=== PATIENT | male | born 1990 | race Caucasian/White ===

== ENCOUNTER 2018-11-09 11:32 | Inpatient (IN) | payer OTHER ==
[~2018-11-09] VITALS: Ht 180.3 cm; Wt 100.7 kg
--- NOTE | 2018-11-09 12:00 | NUR ---
C/O ARLETTE THIGH PAIN FROM WORKING OUT PER PT, AA/OX4, BREATHING EVEN AND UNLABORED, NO SOB NOTED. PLACED ON THE MONITOR, CHANGED INTO GOWN. KEPT COMFORTABLE.
[2018-11-09] MEDS ORDERED: IBUPROFEN 600 MG TABLET PO ONE ×2 (12:40→13:00)
[2018-11-09] MEDS ORDERED: ACETAMINOPHEN ES 500 MG TABLET ONE (12:40)
[2018-11-09 12:50] LABS: CREATININE 1.1 mg/dL (0.6-1.3); POTASSIUM 3.9 mmol/L (3.5-5.1)
[2018-11-09] MEDS ORDERED: ACETAMINOPHEN ES 500 MG TABLET PO ONE (13:00)
--- NOTE | 2018-11-09 13:30 | NUR ---
PATIENT ABLE TO TOLERATE ORAL FLUIDS. ABLE TO AMBULATE AND USE THE RESTROOM INDEPENDENTLY.
[2018-11-09] MEDS ORDERED: MORPHINE SULFATE INJ 2 MG/ML DISP.SYRIN ONE (13:56)
[2018-11-09] MEDS ORDERED: ONDANSETRON HCL/PF 4 MG/2 ML VIAL ONE (13:56)
[2018-11-09] MEDS ORDERED: MORPHINE SULFATE INJ 4 MG/ML DISP.SYRIN ONE (13:56)
[2018-11-09] MEDS ORDERED: IV NS 0.9% 1,000 ML BAG IV ONE (14:00)
[2018-11-09] MEDS ORDERED: MORPHINE SULFATE INJ 2 MG/ML DISP.SYRIN IV ONE (14:00)
[2018-11-09] MEDS ORDERED: ONDANSETRON HCL/PF 4 MG/2 ML VIAL IVP ONE (14:00)
[2018-11-09 14:11] LABS: BASOPHILS % (AUTO) 0.3 % (0.0-2.0); EOSINOPHILS % (AUTO) 0.4 % (0.0-6.0); HEMATOCRIT 46 % (39-51); HEMOGLOBIN 15.8 g/dL (13.5-17.5); LYMPHOCYTES # (AUTO) 1.5 /CMM (0.8-4.8); LYMPHOCYTES % (AUTO) 15.1 % (20.0-44.0); MEAN CORPUSCULAR HGB CONC 35 g/dl (31.0-36.0); MEAN CORPUSCULAR VOLUME 88 fL (80-96); MONOCYTES # (AUTO) 0.6 /CMM (0.1-1.30); MONOCYTES % (AUTO) 5.9 % (2.0-12.0); NEUTROPHILS # (AUTO) 7.9 /CMM (1.8-8.9); NEUTROPHILS % (AUTO) 78.3 % (43.0-81.0); PLATELET COUNT (AUTO) 245 /CMM (150-450); RED BLOOD CELL COUNT(AUTO) 5.21 MIL/uL (4.5-6.0)
[2018-11-09 14:26] LABS: ALBUMIN 4.3 g/dL (3.4-5.0); BILIRUBIN,DIRECT 0.2 mg/dL (0.0-0.2); TOTAL PROTEIN, SERUM 7.2 g/dL (6.4-8.2)
--- NOTE | 2018-11-09 14:30 | NUR ---
[facility]ED [facility]. [facility] FACULTY ASSISTANT WAS PAGED
[2018-11-09 14:41] LABS: BILIRUBIN,TOTAL 0.7 mg/dL (0.2-1.0)
--- NOTE | 2018-11-09 14:51 | NUR ---
CALLED [facility] FOR MS BED
--- NOTE | 2018-11-09 15:38 | NUR ---
REPORT GIVEN TO ANAID ELDRIDGE.
[2018-11-09 15:49] LABS: MAGNESIUM 2.1 mg/dL (1.8-2.4); PHOSPHORUS 3.7 mg/dL (2.5-4.9)
--- NOTE | 2018-11-09 15:59 | NUR ---
PATIENT TRANSFERRED TO ROOM 321 VIA WHEELCHAIR, IN STABLE CONDITION. NO DISTRESS NOTED.
[2018-11-09 16:00] VITALS: BP 139/84
[2018-11-09] MEDS ORDERED: Z GUARD REMEDY 2 OZ OINT TP PRN (16:00)
[2018-11-09] MEDS ORDERED: MAGNESIUM HYDROXIDE 30 ML UDC PO PRN (16:00)
[2018-11-09] MEDS ORDERED: IV NS 0.9% 1,000 ML IV PRN ×2 (16:00)
[2018-11-09] MEDS ORDERED: MAG HYDROX/AL HYDROX/SIMETH 30 ML UDC PO PRN (16:00)
[2018-11-09] MEDS ORDERED: ONDANSETRON HCL/PF 4 MG/2 ML VIAL IVP PRN (16:00)
--- NOTE | 2018-11-09 16:00 | NUR ---
RN MS NOTES Patient received on room air, no sob noted, patient able to be transferred on his own bed without any setbacks. bolus IV of NS started as ordered. bed at the lowest setting, call light within reach, side rails up x2.
--- NOTE | 2018-11-09 17:40 | NUR ---
RN MS NOTES Patient's BLE pulse was check with the doppler. Strong bounding pulses heard bilaterally.
--- NOTE | 2018-11-09 18:23 | NUR ---
RN MS CLOSING NOTES Patient remains on room air, no sob noted, patient denies pain at this time. Patient stated that only a little bit of discomfort on his legs are felt. Patient remains a/o x4, NPO at this time. Doppler done for BLE neurologic and BLE pulses, pulses present and strong. IV bolus still infusing at this time on his second bag. Patient's bed at the lowest setting, call light within reach, side rails up x2. Will give report to NOC RN for KAIN bedside.
--- NOTE | 2018-11-09 19:05 | NUR ---
MS RN NOTE RECEIVED PT IN STABLE CONDITION A/O X4, CURRENTLY IN BED WATCHING TV WITH GUEST AT BEDSIDE. NO SIGNS OF SOB OR DISTRESS, NO C/O PAIN. IV IN L AC IN PLACE WITH IVF INFUSING, TOLERATING WELL. ALL CURRENT NEEDS ATTENDED TO. BED LOW, LOCKED, UPPER RAILS UP, AND CALL LIGHT WITHIN REACH. WILL CONT. TO MONITOR.
[2018-11-09] MEDS: IV NS 0.9% 1,000 ML IV PRN (19:18)
[2018-11-09] MEDS: MORPHINE SULFATE INJ 2 MG/ML DISP.SYRIN IV PRN ×2 (19:25→23:32)
--- NOTE | 2018-11-09 20:00 | NUR ---
MS RN NOTE PULSES NOTED IN BILATERAL FEET. WILL CONT. TO MONITOR.
[2018-11-09 20:02] VITALS: BP 126/78
[2018-11-09] MEDS: HYDROCODONE/APAP 5/325MG 1 EACH TABLET PO PRN (21:20)
--- NOTE | 2018-11-09 22:10 | NUR ---
MS RN NOTE PULSES NOTED IN BILATERAL FEET WITH USE OF DOPPLER. WILL CONT. TO MONITOR.
--- NOTE | 2018-11-10 | NUR ---
MS RN NOTE PULSES NOTED IN BILATERAL FEET WITH USE OF DOPPLER. PT DECLINES DOPPLER CHECKS WHILE ASLEEP. RISKS AND BENEFITS MADE AWARE. WILL CONT. TO MONITOR.
--- NOTE | 2018-11-10 05:37 | NUR ---
MS RN NOTE PEDAL PULSES NOTED IN BILATERAL FEET WITH USE OF DOPPLER. WILL CONT. TO MONITOR.
[2018-11-10] MEDS: MORPHINE SULFATE INJ 2 MG/ML DISP.SYRIN IV PRN ×2 (06:10→13:40)
--- NOTE | 2018-11-10 06:22 | NUR ---
MS RN NOTE PT IN STABLE CONDITION A/O X4, CURRENTLY IN BED WATCHING TV. NO SIGNS OF SOB OR DISTRESS, NO C/O PAIN. IV IN L AC IN PLACE S/L. ALL CURRENT NEEDS ATTENDED TO. BED LOW, LOCKED, UPPER RAILS UP, AND CALL LIGHT WITHIN REACH. WILL CONT. TO MONITOR AND ENDORSE TO NEXT SHIFT FOR KAIN.
[2018-11-10 06:24] LABS: BASOPHILS % (AUTO) 0.6 % (0.0-2.0); EOSINOPHILS % (AUTO) 2.6 % (0.0-6.0); HEMATOCRIT 44 % (39-51); HEMOGLOBIN 15.2 g/dL (13.5-17.5); LYMPHOCYTES # (AUTO) 1.8 /CMM (0.8-4.8); LYMPHOCYTES % (AUTO) 25.7 % (20.0-44.0); MEAN CORPUSCULAR HGB CONC 35 g/dl (31.0-36.0); MEAN CORPUSCULAR VOLUME 89 fL (80-96); MONOCYTES # (AUTO) 0.6 /CMM (0.1-1.30); MONOCYTES % (AUTO) 8.1 % (2.0-12.0); NEUTROPHILS # (AUTO) 4.5 /CMM (1.8-8.9); PLATELET COUNT (AUTO) 210 /CMM (150-450); RED BLOOD CELL COUNT(AUTO) 4.97 MIL/uL (4.5-6.0); WHITE BLOOD COUNT (AUTO) 7.1 K/uL (4.3-11.0)
[2018-11-10 06:30] LABS: ALBUMIN 3.4 g/dL (3.4-5.0); BILIRUBIN,DIRECT 0.1 mg/dL (0.0-0.2); BILIRUBIN,TOTAL 0.8 mg/dL (0.2-1.0); CALCIUM, SERUM 8.5 mg/dL (8.5-10.1); MAGNESIUM 2.1 mg/dL (1.8-2.4); PHOSPHORUS 3.6 mg/dL (2.5-4.9); POTASSIUM 4.1 mmol/L (3.5-5.1); TOTAL PROTEIN, SERUM 6.2 g/dL (6.4-8.2)
[2018-11-10 06:34] LABS: THYROID STIMULATING HORMONE 0.856 uIU/mL (0.358-3.74)
--- NOTE | 2018-11-10 07:18 | NUR ---
MS RN OPENING NOTES RECEIVED PT AWAKE IN BED WATCHING TV. A/O X4. ABLE TO MAKE NEEDS KNOWN, DENIES PAIN OR ANY DISCOMFORTS AT THIS TIME. ON ROOM AIR, BREATHING EVEN AND UNLABORED. IV ACCESS ON LAC G#20 INTACT AND PATENT, IVF INFUSING ORDERED, NO S/S OF INFILTRATIONS AT SITE NOTED. BED IN LOW LOCKED POSITION WITH UPPER RAILS UP. CALL LIGHT WITHIN REACH. WILL CONTINUE TO MONITOR.
[2018-11-10] MEDS: IV NS 0.9% 1,000 ML IV PRN ×3 (07:27→21:26)
[2018-11-10 08:00] VITALS: BP 144/85
[2018-11-10] MEDS: HYDROCODONE/APAP 5/325MG 1 EACH TABLET PO PRN ×3 (10:31→22:57)
--- NOTE | 2018-11-10 10:34 | NUR ---
RN NOTES/PAIN MANAGEMENT PT COMPLAINED OF ACHING THROBBING B/L THIGH PAIN. PRN NORCO 5/325 TAB PO GIVEN AT 1031. WILL CONTINUE TO MONITOR AND REASSESS PT.
--- NOTE | 2018-11-10 13:30 | NUR ---
RN NOTES URINE SPECIMEN COLLECTED AND SENT TO LAB FOR URINALYSIS.
--- NOTE | 2018-11-10 13:43 | NUR ---
RN NOTES/PAIN MANAGEMENT PT COMPLAINED OF ACHING THROBBING B/L THIGH PAIN WITH SCALE OF 8/10. PRN MORPHINE 2MG/1ML ADMINISTERED IVP @ 1340. WILL CONTINUE TO MONITOR AND REASSESS PT.
[2018-11-10] MEDS ORDERED: LIDOCAINE 5% (PATCH) 1 EA PATCH TP SCH (14:00)
[2018-11-10 14:47] LABS: APPEARANCE,URINE CLEAR (CLEAR); BILIRUBIN,URINE NEGATIVE (NEGATIVE); BLOOD, URINE 3+ Ery/uL (NEGATIVE); COLOR,URINE YELLOW (YELLOW); KETONES,URINE TRACE (NEGATIVE); LEUKOCYTE ESTERASE ,URINE NEGATIVE (NEGATIVE); NITRITE, URINE NEGATIVE (NEGATIVE); PROTEIN,URINE 1+ mg/dl (NEGATIVE); UGLUCOSE NEGATIVE (NEGATIVE); UROBILINOGEN,URINE 0.2 EU/dL (0.2)
[2018-11-10 15:54] LABS: SQUAMOUS EPITHELIAL CELL,UR None Seen /HPF (None Seen)
[2018-11-10 15:57] LABS: BACTERIA,URINE None seen /HPF (None Seen); RBC,URINE 0-2 /HPF (0-2); WBC,URINE 0-2 /HPF (0-3)
[2018-11-10 16:00] VITALS: BP 142/91
--- NOTE | 2018-11-10 16:49 | NUR ---
RN NOTES/PAIN MANAGEMENT PT COMPLAINED OF ACHING THROBBING B/L THIGH PAIN WITH SCALE OF 7/10. PRN NORCO 5/325 TAB PO GIVEN AT 1648. WILL CONTINUE TO MONITOR AND REASSESS PT.
--- NOTE | 2018-11-10 18:44 | NUR ---
MS CLOSING NOTES PT AWAKE IN BED WATCHING TV AND USES HIS LAPTOP MOST OF TIME. AT BEDSIDE. A/O X4. ABLE TO MAKE NEEDS KNOWN. BLE PULSES PRESENT AND STRONG USING DOPPLER. PT SAME ABLE TO MOVE ALL TOES W/O PROBLEMS. ON ROOM AIR, TOLERATING WELL WITH NO SOB NOTED. IV ACCESS ON LAC G#20 INTACT AND PATENT, IVF OF NS @ 200ML/HR INFUSING WELL, NO S/S OF INFILTRATIONS AT SITE NOTED. ALL NEEDS AND CARE ATTENDED WELL. BED IN LOW LOCKED POSITION WITH UPPER RAILS UP. CALL LIGHT WITHIN REACH. WILL ENDORSE TO GENERAL PURCHASING AGENT NURSE FOR KAIN
--- NOTE | 2018-11-10 19:05 | NUR ---
MS/RN OPENING NOTES PT RECEIVED AWAKE WITH VISITORS AT BEDSIDE. A/OX4. ON ROOM AIR, BREATHING EVEN AND UNLABORED. IV TL LAC PATENT AND INTACT RUNNING IVF ORDERED. RATES BLE PAIN 5/10 AT THIS TIME AND "FEELS PRETTY GOOD". NO NEEDS EXPRESSED AT THIS TIME. BED IN LOW/LOCKED POSITION WITH CALL LIGHT IN REACH. HOB HIGH FOWLERS AND BILAT. UPPER SIDE RAILS IN PLACE. WILL CONTINUE TO MONITOR
[2018-11-10 20:00] VITALS: BP 129/72
--- NOTE | 2018-11-10 20:20 | NUR ---
MS/RN NOTES STRONG PERIPHERAL PULSES NOTED TO BLE. ABLE TO MOVE FEET AND WIGGLE TOES. HAS SENSATION TO BILAT. FEET. WARM TO TOUCH. AMBULATED TO RESTROOM WITH STANDBY ASSIST.
--- NOTE | 2018-11-10 22:30 | NUR ---
MS/RN NOTES DOPPLER USED TO ASSESS BLE PULSES. STRONG AND REGULAR. BLE WARM TO TOUCH AND COLOR WNL. ABLE TO MOVE FEET, WIGGLE TOES AND HAS SENSATION. PT DOES NOT WANT PULSES ASSESSED WHILE ASLEEP
--- NOTE | 2018-11-10 23:02 | NUR ---
MS/RN NOTES PT C/O BILAT. THIGH PAIN /10, AGGRAVATED WITH AMBULATION. ADMINISTERED PRN NORCO ORDERED.
[2018-11-11] MEDS: IV NS 0.9% 1,000 ML IV PRN ×4 (02:26→21:56)
--- NOTE | 2018-11-11 04:43 | NUR ---
MS/RN NOTES URINE COLLECTED AND PLACED IN FRIDGE FOR SWING SAW OPERATOR
[2018-11-11 04:44] LABS: APPEARANCE,URINE CLEAR (CLEAR); BILIRUBIN,URINE NEGATIVE (NEGATIVE); BLOOD, URINE 3+ Ery/uL (NEGATIVE); COLOR,URINE OTHER (YELLOW); KETONES,URINE NEGATIVE (NEGATIVE); LEUKOCYTE ESTERASE ,URINE NEGATIVE (NEGATIVE); NITRITE, URINE NEGATIVE (NEGATIVE); PROTEIN,URINE NEGATIVE (NEGATIVE); UGLUCOSE NEGATIVE (NEGATIVE); UROBILINOGEN,URINE 0.2 EU/dL (0.2)
[2018-11-11 04:48] LABS: BACTERIA,URINE Rare /HPF (None Seen); SQUAMOUS EPITHELIAL CELL,UR Rare /HPF (None Seen); WBC,URINE 0-2 /HPF (0-3)
[2018-11-11] MEDS: ACETAMINOPHEN 325 MG TABLET PO PRN ×2 (06:20→16:58)
--- NOTE | 2018-11-11 06:22 | NUR ---
MS/RN NOTES PT C/O HEADACHE 06/08. ADMINISTERED PRN TYLENOL ORDERED
--- NOTE | 2018-11-11 06:47 | NUR ---
MS/RN CLOSING NOTES PT AWAKE, RESTING COMFORTABLY IN BED. ON ROOM AIR, BREATHING EVEN AND UNLABORED. DENIES SOB, C/O HEADACHE AND ADMINISTERED PRN TYLENOL. SOME DISCOMFORT TO BILAT. THIGHS UPON AMBULATION BUT DOES NOT WANT PAIN MEDS AT THIS TIME. IV TO LAC PATENT AND INTACT RUNNING IVF ORDERED. URINE COLLECTED FOR UA. BLE WITH STRONG REGULAR PULSES. NO SIGNIFICANT CHANGES OVERNIGHT. ALL NEEDS MET. BED IN LOW/LOCKED POSITION WITH CALL LIGHT IN REACH. BILAT. UPPER SIDE RAILS IN PLACE. WILL ENDORSE TO DAY SHIFT RN KAIN.
[2018-11-11 07:15] LABS: BASOPHILS % (AUTO) 0.4 % (0.0-2.0); EOSINOPHILS % (AUTO) 2.8 % (0.0-6.0); HEMATOCRIT 44 % (39-51); HEMOGLOBIN 15.1 g/dL (13.5-17.5); LYMPHOCYTES # (AUTO) 1.7 /CMM (0.8-4.8); LYMPHOCYTES % (AUTO) 22.6 % (20.0-44.0); MEAN CORPUSCULAR HGB CONC 34 g/dl (31.0-36.0); MEAN CORPUSCULAR VOLUME 88 fL (80-96); MONOCYTES # (AUTO) 0.6 /CMM (0.1-1.30); MONOCYTES % (AUTO) 8.3 % (2.0-12.0); NEUTROPHILS % (AUTO) 65.9 % (43.0-81.0); PLATELET COUNT (AUTO) 227 /CMM (150-450); RED BLOOD CELL COUNT(AUTO) 4.98 MIL/uL (4.5-6.0); WHITE BLOOD COUNT (AUTO) 7.6 K/uL (4.3-11.0)
[2018-11-11 07:18] LABS: CALCIUM, SERUM 8.4 mg/dL (8.5-10.1); POTASSIUM 4.4 mmol/L (3.5-5.1)
--- NOTE | 2018-11-11 07:39 | NUR ---
MS RN OPENING NOTES RECEIVED PT LAYING IN BED WITH HOB ELEVATED. PT IS A/O X4, AFEBRILE. RESPIRATIONS ARE EVEN AND UNLABORED, NOT IN ANY ACUTE DISTRESS NOTED. PT DENIES ANY PAIN AT THIS TIME, NO C/O SOB, N/V. IV ACCESS TO LAC INTACT, NO INFILTRATION NOTED. DRESSING KEPT CLEAN AND DRY. SAFETY MEASURES ARE IN PLACE. INSTRUCTED PT TO USE CALL LIGHT WHEN ASSISTANCE IS NEEDED, CALL LIGHT IS LEFT WITHIN REACH. WILL MONITOR THROUGHOUT SHIFT FOR CONTINUITY OF CARE.
[2018-11-11 08:00] VITALS: BP 141/91
[2018-11-11] MEDS: MORPHINE SULFATE INJ 2 MG/ML DISP.SYRIN IV PRN (08:04)
[2018-11-11] MEDS: HYDROCODONE/APAP 5/325MG 1 EACH TABLET PO PRN ×3 (08:26→22:54)
--- NOTE | 2018-11-11 08:27 | NUR ---
MS RN NOTES-- PT REQUESTED MORPHINE FOR PL 11/08. PULLED MORPHINE FROM [facility]. UPON ENTERING PT'S ROOM TO ADMINISTER MORPHINE, PT STATED "I WANT NORCO INSTEAD." RETURNED MORPHINE TO [facility] AND PULLED OUT NORCO . WILL NOTE EFFECTIVENESS.
[2018-11-11 10:36] LABS: ALBUMIN 3.4 g/dL (3.4-5.0); BILIRUBIN,DIRECT 0.1 mg/dL (0.0-0.2); BILIRUBIN,TOTAL 0.5 mg/dL (0.2-1.0); TOTAL PROTEIN, SERUM 6.4 g/dL (6.4-8.2)
--- NOTE | 2018-11-11 11:34 | NUR ---
MS RN NOTES-- BLE PULSES ARE STRONG AND REGULAR. PT ABLE TO WIGGLE TOES, FEELS SENSATIONS AND AMBULATE. WILL CONTINUE TO MONITOR.
[2018-11-11 16:00] VITALS: BP 150/80
--- NOTE | 2018-11-11 18:07 | NUR ---
MS RN NOTES-- BLE PULSES ARE STRONG AND REGULAR. PT ABLE TO WIGGLE TOES, FEELS SENSATIONS AND IS ABLE TO AMBULATE WITH NO ASSISTANCE. WILL CONTINUE TO MONITOR.
--- NOTE | 2018-11-11 18:29 | NUR ---
MS RN CLOSING NOTES ALL NEEDS MET AND RENDERED. PT IS A/O X4, AFEBRILE. RESPIRATIONS ARE EVEN AND UNLABORED, NOT IN ANY ACUTE DISTRESS NOTED. PT DENIES ANY PAIN AT THIS TIME, NO C/O SOB, N/V. IV SITE TO RAC INTACT, NO INFILTRATION NOTED. DRESSING KEPT CLEAN AND DRY. SAFETY MEASURES ARE IN PLACE. REMINDED PT TO USE CALL LIGHT WHEN ASSISTANCE IS NEEDED, CALL LIGHT IS LEFT WITHIN REACH. WILL ENDORSE TO NEXT SHIFT FOR CONTINUITY OF CARE.
--- NOTE | 2018-11-11 19:15 | NUR ---
MS/RN OPENING NOTES PT RECEIVED AWAKE SITTING IN THE CHAIR WITH VISITORS AT BEDSIDE. BREATHING IS EVEN AND UNLABORED, ON ROOM AIR, DENIES SOB. ADMITS TO 2/10 BILAT. THIGH PAIN BUT IS AT A TOLERABLE LEVEL AND DOES NOT WANT PAIN MEDICATION AT THIS TIME. IV TO LAC PATENT AND INTACT RUNNING IVF ORDERED. NO NEEDS EXPRESSED AT THIS TIME. WILL CONTINUE TO MONITOR
[2018-11-11 20:00] VITALS: BP 132/83
[2018-11-11 20:57] VITALS: BP 132/83
--- NOTE | 2018-11-11 22:55 | NUR ---
MS/RN NOTES PT C/O 08/08 BILAT. THIGH PAIN. ADMINISTERED PRN NORCO ORDERED. PITCHER REFILLED WITH ICE WATER AND PT AMBULATED TO RESTROOM. IV FLUIDS RESUMED
--- NOTE | 2018-11-12 02:41 | NUR ---
MS/RN NOTES PT ROUNDING DONE. PT ASLEEP, BREATHING EVEN AND UNLABORED. NO SIGNS OF DISTRESS NOTED. WILL CONTINUE TO MONITOR
[2018-11-12] MEDS: IV NS 0.9% 1,000 ML IV PRN ×4 (03:35→20:29)
--- NOTE | 2018-11-12 05:13 | NUR ---
MS/RN NOTES URINE SAMPLE COLLECTED AND PLACED IN THE FRIDGE FOR PICKUP
--- NOTE | 2018-11-12 06:22 | NUR ---
MS/RN CLOSING NOTES PT ASLEEP, RESPONSIVE TO NAME. ON ROOM AIR, BREATHING EVEN AND UNLABORED. DENIES SOB AND PAIN AT THIS TIME. IV TO LAC PATENT AND INTACT RUNNING NS AT 200ML/HR. NO SIGNIFICANT CHANGES OVERNIGHT. URINE COLLECTED FOR UA. ALL NEEDS MET AND ANTICIPATED. BED IN LOW/LOCKED POSITION WITH CALL LIGHT IN REACH. HOB ELEVATED AND BILAT. UPPER SIDE RAILS IN PLACE. WILL ENDORSE TO ONCOMING SHIFT KAIN.
[2018-11-12 06:36] LABS: BASOPHILS % (AUTO) 0.5 % (0.0-2.0); EOSINOPHILS % (AUTO) 2.2 % (0.0-6.0); HEMATOCRIT 41 % (39-51); HEMOGLOBIN 14.2 g/dL (13.5-17.5); LYMPHOCYTES # (AUTO) 1.7 /CMM (0.8-4.8); MEAN CORPUSCULAR HGB CONC 35 g/dl (31.0-36.0); MEAN CORPUSCULAR VOLUME 88 fL (80-96); MONOCYTES # (AUTO) 0.6 /CMM (0.1-1.30); MONOCYTES % (AUTO) 8.2 % (2.0-12.0); NEUTROPHILS # (AUTO) 5.1 /CMM (1.8-8.9); NEUTROPHILS % (AUTO) 67.1 % (43.0-81.0); PLATELET COUNT (AUTO) 230 /CMM (150-450); RED BLOOD CELL COUNT(AUTO) 4.63 MIL/uL (4.5-6.0); WHITE BLOOD COUNT (AUTO) 7.6 K/uL (4.3-11.0)
[2018-11-12 06:38] LABS: APPEARANCE,URINE CLEAR (CLEAR); BILIRUBIN,URINE NEGATIVE (NEGATIVE); BLOOD, URINE 2+ Ery/uL (NEGATIVE); COLOR,URINE YELLOW (YELLOW); KETONES,URINE NEGATIVE (NEGATIVE); LEUKOCYTE ESTERASE ,URINE NEGATIVE (NEGATIVE); NITRITE, URINE NEGATIVE (NEGATIVE); PROTEIN,URINE NEGATIVE (NEGATIVE); UGLUCOSE NEGATIVE (NEGATIVE); UROBILINOGEN,URINE 0.2 EU/dL (0.2)
[2018-11-12 06:54] LABS: BACTERIA,URINE None seen /HPF (None Seen); RBC,URINE 0-2 /HPF (0-2); SQUAMOUS EPITHELIAL CELL,UR None Seen /HPF (None Seen)
[2018-11-12 06:55] LABS: URINE AMORPHOUS URATE Few /HPF (None Seen)
[2018-11-12 07:10] LABS: ALBUMIN 3.3 g/dL (3.4-5.0); BILIRUBIN,DIRECT 0.1 mg/dL (0.0-0.2); BILIRUBIN,TOTAL 0.6 mg/dL (0.2-1.0); CALCIUM, SERUM 8.5 mg/dL (8.5-10.1); POTASSIUM 4.3 mmol/L (3.5-5.1); TOTAL PROTEIN, SERUM 6.3 g/dL (6.4-8.2)
[2018-11-12 08:00] VITALS: BP_SYST 140; BP_DIAS 100; BP_DIAS 66
--- NOTE | 2018-11-12 08:00 | NUR ---
MS/RN OPENING NOTES PT RECEIVED AWAKE SITTING IN THE CHAIR DENIES ANY DISCOMFORT.ATE 100%BREAKFAST.BREATHING IS EVEN AND UNLABORED, ON ROOM AIR, DENIES SOB.IV TO LAC PATENT AND INTACT RUNNING IVF ORDERED. NO NEEDS EXPRESSED AT THIS TIME. WILL CONTINUE TO MONITOR.CALL LIGHT PLACED WITHIN REACH.
--- NOTE | 2018-11-12 08:30 | NUR ---
PT AMBULATES TO HIS ROOM AND TO THE BATHROOM WITH SLOW,STEADY GAIT.NEURO CHECK WNL.MAINTAINS ALERT AND ORIENTED X4. WATCHING MOVIES IN HIS LAPTOP.RESPIRATIONS NON LABORED WITH GOOD SENSORY FUNCTION AND PUPILLARY RESPONSE-PERRLA.WITH GOOD MUSCLE NIGHT CLERK AUDITOR IN BUE AND AMBULATES WITH SLOW,STEADY GAIT.DRINKS FLUIDS OFTEN. DENIES ANY DISTRESS. WILL CONTINUE TO MONITOR.CALL LIGHT PLACED WITHIN REACH.
[2018-11-12] MEDS: ACETAMINOPHEN 325 MG TABLET PO PRN (13:56)
[2018-11-12 16:00] VITALS: BP 127/77
--- NOTE | 2018-11-12 18:02 | NUR ---
PT AMBULATES TO HIS ROOM AND TO THE BATHROOM WITH SLOW,STEADY GAIT.NEURO CHECK WNL.MAINTAINS ALERT AND ORIENTED X4 WITH HIS GIRLFRIEND AT THE BEDSIDE-WATCHING MOVIES IN THE LAPTOP.RESPIRATIONS NON LABORED WITH GOOD SENSORY FUNCTION AND PUPILLARY RESPONSE.
--- NOTE | 2018-11-12 19:57 | NUR ---
MS/RN OPENING NOTES RECEIVED PATIENT IN BED, AWAKE, ALERT X4, SITTING IN CHAIR WHILE IV FLUIDS IS RUNNING ON LEFT AC WITH NO S/S OF INFILTRATION. RESPIRATIONS EVEN AND UNLABORED, NO PAIN REPORTED AND OBSERVED. DISCUSSED PLAN OF CARE REPORTED ABLE TO TOLERATE PAIN AND FEELING MUCH BETTER. INSTRUCTED TO CALL FOR ASSISTANCE. DRINKING FLUIDS,WILL MONITOR. RECEIVED REPORT FROM AM RN FOR KAIN.
[2018-11-12 20:00] VITALS: BP_SYST 127; BP_SYST 144; BP_DIAS 77; BP_DIAS 82
[2018-11-12 20:51] VITALS: BP 144/82
--- NOTE | 2018-11-12 21:00 | NUR ---
MS/RN NOTES PATIENT ABLE TO AMBULATE FROM CHAIR TO BED, REQUESTED FOR ICE WATER IN PITCHER , NO PAIN REPORTED, REPORTED WILL BE GOING TO BED.
--- NOTE | 2018-11-13 06:54 | NUR ---
321-1MS/RN NOTES PATIENT ABLE TO SLEEP DURING THE NEEGT, DENIES PAIN AND DISCOMFORT. WILL MONITOR FOR ANY CHANGES, WILL ENDORSE TO AM RN FOR KAIN.
[2018-11-13 07:18] LABS: BASOPHILS % (AUTO) 0.5 % (0.0-2.0); EOSINOPHILS % (AUTO) 2.7 % (0.0-6.0); HEMATOCRIT 42 % (39-51); HEMOGLOBIN 14.4 g/dL (13.5-17.5); LYMPHOCYTES # (AUTO) 1.6 /CMM (0.8-4.8); LYMPHOCYTES % (AUTO) 22.6 % (20.0-44.0); MEAN CORPUSCULAR HGB CONC 34 g/dl (31.0-36.0); MEAN CORPUSCULAR VOLUME 88 fL (80-96); MONOCYTES # (AUTO) 0.5 /CMM (0.1-1.30); MONOCYTES % (AUTO) 6.7 % (2.0-12.0); NEUTROPHILS # (AUTO) 4.9 /CMM (1.8-8.9); NEUTROPHILS % (AUTO) 67.5 % (43.0-81.0); PLATELET COUNT (AUTO) 239 /CMM (150-450); RED BLOOD CELL COUNT(AUTO) 4.76 MIL/uL (4.5-6.0); WHITE BLOOD COUNT (AUTO) 7.2 K/uL (4.3-11.0)
[2018-11-13 07:25] LABS: ALBUMIN 3.4 g/dL (3.4-5.0); BILIRUBIN,DIRECT 0.1 mg/dL (0.0-0.2); BILIRUBIN,TOTAL 0.5 mg/dL (0.2-1.0); CALCIUM, SERUM 8.7 mg/dL (8.5-10.1); CREATININE 0.9 mg/dL (0.6-1.3); POTASSIUM 4.3 mmol/L (3.5-5.1); TOTAL PROTEIN, SERUM 6.3 g/dL (6.4-8.2)
[2018-11-13 08:00] VITALS: BP 139/81
--- NOTE | 2018-11-13 08:00 | NUR ---
MS/RN OPENING NOTES PT RECEIVED AWAKE SITTING IN THE CHAIR ORIENTED X4.MENTAL STATUS WNL.DENIES ANY DISCOMFORT WATCHING ON HIS LAPTOP WHILE EATING 75%BREAKFAST.BREATHING IS EVEN AND UNLABORED, ON ROOM AIR, DENIES SOB.IV TO LAC PATENT AND INTACT RUNNING IVF NS AT 200 ML/HR ORDERED. NO NEEDS EXPRESSED AT THIS TIME. WILL CONTINUE TO MONITOR.CALL LIGHT PLACED WITHIN REACH.
--- NOTE | 2018-11-13 08:30 | NUR ---
PT GOES TO THE TOILET AND AMBULATES WITH SLOW,STEADY GAIT.WITH GOOD MUSCLE STRENGTH,TONE,REFLEXES,COORDINATION,SENSORY FUNCTION AND GAIT.
[2018-11-13 09:33] LABS: APPEARANCE,URINE CLEAR (CLEAR); BILIRUBIN,URINE NEGATIVE (NEGATIVE); BLOOD, URINE 1+ Ery/uL (NEGATIVE); COLOR,URINE YELLOW (YELLOW); KETONES,URINE NEGATIVE (NEGATIVE); LEUKOCYTE ESTERASE ,URINE NEGATIVE (NEGATIVE); NITRITE, URINE NEGATIVE (NEGATIVE); PH,URINE 7.5 (5.0-8.0); PROTEIN,URINE NEGATIVE (NEGATIVE); UGLUCOSE NEGATIVE (NEGATIVE); UROBILINOGEN,URINE 0.2 EU/dL (0.2)
[2018-11-13 09:47] LABS: RBC,URINE 0-2 /HPF (0-2)
[2018-11-13 09:48] LABS: BACTERIA,URINE None seen /HPF (None Seen); SQUAMOUS EPITHELIAL CELL,UR Few /HPF (None Seen); WBC,URINE 0-2 /HPF (0-3)
[2018-11-13] MEDS: IV NS 0.9% 1,000 ML IV PRN ×3 (11:26→20:57)
[2018-11-13 15:45] VITALS: BP 141/80
--- NOTE | 2018-11-13 19:00 | NUR ---
PT SITTING IN THE CHAIR PLAYING CARDS WITH HIS FRIENDS IN HIS ROOM WITH ONGOING IVF NS INFUSING AT 200 ML/HR INFUSING WELL.PT DENIES ANY PAIN OR DISTRESS.ENJOYING THE COMPANY OF HIS FRIENDS.CALL LIGHT PLACED WITHIN HIS REACH.
[2018-11-13 20:00] VITALS: BP_SYST 127; BP_DIAS 70; BP_DIAS 90
--- NOTE | 2018-11-13 20:00 | NUR ---
MS/RN OPENING NOTES PATIENT SITTING IN BED WITH FAMILY/FRIENDS, ABLE TO DO ACTIVITY AND DENIES PAIN, SELF MOTIVATED AND INDEPENDENT, ONLY REQUEST FOR ICE COLD PITCHERS OF WATER AND KEEP HYDRATED AND ON IV HYDRATION. RESPIRATIONS EVEN AND UNLABORED.SKIN WARM TO TOUCH. ABLE TO VERBALIZE NEEDS AT ALL TIMES. INSTRUCTED TO CALL FOR ASSISTANCE. WILL MONITOR,
--- NOTE | 2018-11-14 02:08 | NUR ---
MS/RN OPENING NOTES PATIENT WOKE UP FROM SLEEP AND STATED THAT HER ARMS ON LEFT SIDE WHERE IV IS LOCATED NEED SOME REST , PATIENT ABLE TO DRINK FLUIDS AND HAD ALREADY DRANK 3 PITCHERS OF WATER ,, INFORMED PATIETN THAT LONG HE CAN TOLERATE DRINKING FLUIDS CAN HOLD IV FLUID SO HE CAN GET BACK TO SLEEP PATIENT DO NOT FEEL COMFORTABLE HAVING IV INSERTION AT THIS TIME.WILL MONITOR.
--- NOTE | 2018-11-14 06:44 | NUR ---
321-1 MS/RN NOTES PATIENT ABLE TO SLEEP DURING THE NIGHT, COMPLIANT AND SELF CARE, ABLE TO DRINK FLUIDS ADEQUATELY HAD 3 PITCHERS OF ICE WATER DURING THE SHIFT AND HAD IV FLUIDS FOR 6 HOURS UNTIL PATIENT REQUESTED TO HAVE IT RESTEDFOR NOW WILL MONITOR. BED LOCKED, CALL LIGHTS WITHIN REACH.
--- NOTE | 2018-11-14 07:24 | NUR ---
MS RN OPENING NOTES RECEIVED PATIENT SITTING ON A CHAIR AT BEDSIDE. A/O X 4. IV FLUIDS ON LEFT AC #20 WITH NS RUNNING @200ML/HR, PATENT AND INTACT. CALL LIGHT WITHIN EASY REACH. WILL CONTINUE TO MONITOR.
[2018-11-14 07:47] LABS: CALCIUM, SERUM 9.1 mg/dL (8.5-10.1); CREATININE 0.9 mg/dL (0.6-1.3); POTASSIUM 4.7 mmol/L (3.5-5.1)
[2018-11-14 08:00] VITALS: BP 124/73
[2018-11-14 13:12] LABS: APPEARANCE,URINE CLEAR (CLEAR); BILIRUBIN,URINE NEGATIVE (NEGATIVE); BLOOD, URINE TRACE Ery/uL (NEGATIVE); COLOR,URINE YELLOW (YELLOW); KETONES,URINE NEGATIVE (NEGATIVE); LEUKOCYTE ESTERASE ,URINE NEGATIVE (NEGATIVE); NITRITE, URINE NEGATIVE (NEGATIVE); PROTEIN,URINE NEGATIVE (NEGATIVE); UGLUCOSE NEGATIVE (NEGATIVE); UROBILINOGEN,URINE 0.2 EU/dL (0.2)
[2018-11-14 13:52] LABS: BACTERIA,URINE None seen /HPF (None Seen); RBC,URINE 0-2 /HPF (0-2); SQUAMOUS EPITHELIAL CELL,UR Rare /HPF (None Seen); WBC,URINE NONE SEEN /HPF (0-3)
--- NOTE | 2018-11-14 14:30 | NUR ---
RN DISCHARGED NOTES PATIENT DISCHARGED IN STABLE CONDITION. A/O X 4. ABLE TO MAKE NEEDS KNOWN. V/S TAKEN, STABLE AND RECORDED. PATIENT'S IV ACCESS REMOVED AND APPLIED PRESSURE DRESSING. SKIN IS INTACT. NAME ARM BAND REMOVED. ALL BELONGINGS CHECKED AND SIGNED. HEALTH TEACHINGS/DISCHARGED INSTRUCTIONS GIVEN AND VERBALIZED UNDERSTANDING. PATIENT LEFT UNIT AMBULATORY WITH AT 1430 WITH NO ACUTE SIGNS OF DISTRESS. CHARGE NURSE AWARE OF DISCHARGED.
== END 2018-11-14 14:49 | disposition home or self-care (01) | DRG 558 ==
LOC: ER 11:34 → MED 15:17
PROVIDERS: ADMIT Nurse Practitioner Acute Care; ATTEND Nurse Practitioner Acute Care
DX: M62.82 Rhabdomyolysis (principal); Z87.442 Personal history of urinary calculi; Z80.3 Family history of malignant neoplasm of breast; R74.0 Nonspecific elevation of levels of transaminase and lactic acid dehydrogenase [LDH]
CPT/HCPCS: 36415; 76700-TC; 80048-TC; 80061-TC; 80074; 80076-TC; 81000-TC; 82550-TC; 82977-TC; 83605-TC; 83735-TC; 84100-TC; 84443-TC; 85025-TC; 86706; 87081-TC; G0378; G0480; J2270; J2405; J7030